=== PATIENT | female | born 1990 | race Caucasian/White ===

== ENCOUNTER 2021-10-29 16:29 | Emergency (ER) | payer SELFPAY ==
[2021-10-29] MEDS ORDERED: DIAZEPAM 5 MG TABLET ONE ×2 (17:41→17:46)
[2021-10-29] MEDS ORDERED: HYDROCODONE/APAP 10/325 TAB ONE (17:41)
[2021-10-29] MEDS ORDERED: KETOROLAC 30 MG/ML INJ ONE (17:41)
--- NOTE | 2021-10-29 19:22 | RAD REPORT ---
EXAM DESCRIPTION: RAD - Ribs Left - 10/29/2021 7:12 pm COMPARISON: None. FINDINGS: No displaced rib fracture is seen and no non-displaced rib fractures suspected. No aggress colton rib lesion. No underlying pneumothorax, effusion, infiltrate or pulmonary contusion. IMPRESSION: Negative left rib series.
--- NOTE | 2021-10-29 19:23 | RAD REPORT ---
EXAM DESCRIPTION: RAD - Shoulder Left 2 View - 10/29/2021 7:12 pm CLINICAL HISTORY: fall COMPARISON: No comparisonsNo comparisons TECHNIQUE: Internal and external rotation views of the left shoulder were obtained. FINDINGS: There is no fracture or dislocation. AC joint is normal in appearance. No acute or suspici ous findings. IMPRESSION: Negative two-view left shoulder examination for acute findings.
--- NOTE | 2021-10-29 19:37 | EDPHYS ---
Physician Documentation [facility] Name: Cecy King Age: 31 yrs Sex: Female : 1990 Arrival Date: 10/29/2021 Time: 16:33 Bed 9 Private MD: ED Physician Tk Rush HPI: 10/29 18:59 This 31 yrs old Female presents to ER via Ambulatory with complaints of Fall Injury, jmm Shoulder Pain. 18:59 Details of fall: The patient fell from an upright position, skate boarding. Onset: The jmm symptoms/episode began/occurred acutely, 3 day(s) ago. Associated injuries: The patient sustained left shoulder, chest pain. The patient has not experienced similar symptoms in the past. Denies hitting her head. 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 - Social history:: Smoking status: Patient denies any tobacco usage or history of. ROS: 18:59 Constitutional: Negative for fever, chills, and weight loss, Cardiovascular: Negative jmm for chest pain, palpitations, and edema, Respiratory: Negative for shortness of breath, cough, wheezing, and pleuritic chest pain. 18:59 MS/extremity: Positive for pain. 18:59 All other systems are negative. Exam: 18:59 Constitutional: This is a well developed, well nourished patient who is awake, alert, jmm and in no acute distress. Head/Face: atraumatic. Eyes: EOMI, no conjunctival erythema appreciated ENT: Moist Mucus Membranes Neck: Trachea midline, Supple 18:59 Respiratory: Normal respirations, no respiratory distress appreciated Abdomen/GI: Non distended Back: Normal ROM Skin: General appearance color normal 18:59 Chest/axilla: Inspection: normal, Palpation: tenderness, that is moderate, of the anterior aspect of left upper chest and left breast. 18:59 Cardiovascular: Rate: normal, Rhythm: regular. 18:59 Respiratory: the patient does not display signs of respiratory distress, Respirations: normal, Breath sounds: are clear throughout. 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 18:59 Skin: Appearance: Color: normal in color. 18:59 Neuro: Orientation: is normal, Mentation: is normal, Memory: is normal. 18:59 Psych: Behavior/mood is pleasant, cooperative. Vital Signs: 16:45 BP 132 / 85; Pulse 83; Resp 19; Temp 98.3(O); Pulse Ox 99% ; Weight 71.67 kg; Height 5 haro ft. 5 in. (165.10 cm); 18:52 BP 123 / 91; Pulse 66; Resp 18; Pulse Ox 100% on R/A; jb4 20:17 Pulse 57; Resp 16; Pulse Ox 100% on R/A; jb4 16:45 Body Mass Index 26.29 (71.67 kg, 165.10 cm) haro MDM: 17:24 Patient medically screened. [facility] 19:34 Data reviewed: vital signs, nurses notes. Counseling: I had a detailed discussion with jarrett the patient and/or guardian regarding: the historical points, exam findings, and any diagnostic results supporting the discharge/admit diagnosis, radiology results, the need for outpatient follow up, to return to the emergency department if symptoms worsen or persist or if there are any questions or concerns that arise at home. ED course: Patient states feeling much better. Patient advised to follow up with pcp and otherwise given strict return precautions. Patient understood and agrees with the plan of care. . 10/29 18:22 Order name: Ribs Left; Complete Time: 19:29 EDMS 10/29 18:22 Order name: Shoulder Left 2 View; Complete Time: 19:29 EDMS Administered Medications: 17:45 Drug: Ketorolac 30 mg Route: IM; Site: right deltoid; jb4 18:15 Follow up: Response: No adverse reaction; Marked relief of symptoms jb4 17:45 Drug: [place] (HYDROcodone-acetaminophen) 10 mg-325 mg 1 tabs Route: PO; jb4 18:15 Follow up: Response: No adverse reaction; Marked relief of symptoms jb4 17:45 Drug: Valium (diazepam) 5 mg Route: PO; jb4 20:15 Follow up: Response: No adverse reaction; Marked relief of symptoms jb4 Disposition Summary: 10/29/21 19:36 Discharge Ordered Location: Home jmm Condition: Stable jmm Diagnosis - Strain of other muscles, fascia and tendons at shoulder and upper arm level, left jm arm - Chest Wall Contusion jm Followup: jmm - With: Private Physician - When: 2 - 3 days - Reason: Recheck today's complaints, Continuance of care, Re-evaluation by your physician Discharge Instructions: - Discharge Summary Sheet jmm - Chest Wall Pain jmm - Shoulder Sprain jmm Forms: - Medication Reconciliation Form jm - Thank You Letter jm - Antibiotic Education jmm - Prescription Opioid Use jm Prescriptions: - Diclofenac Sodium 75 mg Oral Tablet Sustained Release - take 1 tablet by ORAL route 2 times per day; 30 tablet; Refills: 0, Product jmm Selection Permitted - orphenadrine citrate 100 mg Oral Tablet Sustained Release - take 1 tablet by ORAL route 2 times per day As needed; 20 tablet; Refills: 0, jmm Product Selection Permitted Signatures: Dispatcher [employer] EDMS Aashish Laughlin PA PA jmm Bryson, James, RN RN jb4 Janelle Jeffers RN RN haro Corrections: (The following items were deleted from the chart) 18:45 18:34 Shoulder Left 2 View+RAD.RAD.BRZ ordered. EDMS EDMS 18:46 18:34 Ribs Left+RAD.RAD.BRZ ordered. EDMS EDMS 18:46 18:35 Ribs Left+RAD.RAD.BRZ ordered. EDMS EDMS 18:48 18:35 Shoulder Left 2 View+RAD.RAD.BRZ ordered. EDMS EDMS
--- NOTE | 2021-10-29 19:37 | ER ---
Nurse's Notes [facility] Name: Cecy King Age: 31 yrs Sex: Female : 1990 Arrival Date: 10/29/2021 Time: 16:33 Bed 9 Private MD: Diagnosis: Strain of other muscles, fascia and tendons at shoulder and upper arm level, left arm;Chest Wall Contusion Presentation: 10/29 16:42 Chief complaint: Patient states: pt reports skate boarding with her kid, hit a rock, pt haro flew off skate board and injured left chest wall. pt denies head injuries and loc. Care prior to arrival: Assisted ventilation. Mechanism of Injury: Fall. Trauma event details: Injury occurred: October 26, 2021. 16:42 Acuity: IFRAH 4 haro 16:42 Method Of Arrival: Ambulatory 16:45 Coronavirus screen: Vaccine status: Patient reports being unvaccinated. Ebola Screen: haro Patient denies travel to an Ebola-affected area in the 21 days before illness onset. Initial Sepsis Screen: Does the patient meet any 2 criteria? No. Patient's initial sepsis screen is negative. Does the patient have a suspected source of infection? No. Patient's initial sepsis screen is negative. Risk Assessment: Do you want to hurt yourself or someone else? Patient reports no desire to harm self or others. Onset of symptoms was October 26, 2021. 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 - Social history:: Smoking status: Patient denies any tobacco usage or history of. Screenin:50 Abuse screen: Denies threats or abuse. Nutritional screening: No deficits noted. jb4 Tuberculosis screening: No symptoms or risk factors identified. Fall Risk None identified. Assessment: 16:42 General: Appears in no apparent distress. Behavior is cooperative, anxious. Pain: haro Complains of pain in anterior aspect of left upper chest and left breast. 17:00 General: Appears in no apparent distress. uncomfortable, Behavior is calm, cooperative, jb4 appropriate for age. Pain: Complains of pain in left trapezius, left scapular area, left clavicle, anterior aspect of left upper chest and left arm Pain does not radiate. Pain currently is 8 out of 10 on a pain scale. Neuro: Level of Consciousness is awake, alert, obeys commands, Oriented to person, place, time, situation. Cardiovascular: Patient's skin is warm and dry. Respiratory: Airway is patent Respiratory effort is even, unlabored, Respiratory pattern is regular, symmetrical. Derm: Skin is intact, Skin is pink, warm \T\ dry. Musculoskeletal: Circulation, motion, and sensation intact. Range of motion: intact in all extremities. 18:00 Reassessment: Patient appears in no apparent distress at this time. Patient and/or jb4 family updated on plan of care and expected duration. Pain level reassessed. Patient is alert, oriented x 3, equal unlabored respirations, skin warm/dry/pink. 18:52 Reassessment: Patient appears in no apparent distress at this time. Patient and/or jb4 family updated on plan of care and expected duration. Pain level reassessed. Patient is alert, oriented x 3, equal unlabored respirations, skin warm/dry/pink. 20:17 Reassessment: Patient appears in no apparent distress at this time. Patient and/or jb4 family updated on plan of care and expected duration. Pain level reassessed. Patient is alert, oriented x 3, equal unlabored respirations, skin warm/dry/pink. Vital Signs: 16:45 BP 132 / 85; Pulse 83; Resp 19; Temp 98.3(O); Pulse Ox 99% ; Weight 71.67 kg; Height 5 haro ft. 5 in. (165.10 cm); 18:52 BP 123 / 91; Pulse 66; Resp 18; Pulse Ox 100% on R/A; jb4 20:17 Pulse 57; Resp 16; Pulse Ox 100% on R/A; jb4 16:45 Body Mass Index 26.29 (71.67 kg, 165.10 cm) ED Course: 16:33 Patient arrived in ED. as 16:44 Triage completed. haro 16:47 Arm band placed on. haro 16:50 Patient has correct armband on for positive identification. Bed in low position. Call jb4 light in reach. Side rails up X 1. Client placed on continuous cardiac and pulse oximetry monitoring. NIBP monitoring applied. 16:56 Aashish Laughlin PA is PHCP. [facility] 16:56 Tk Rush MD is Attending Physician. [facility] 17:46 Theron Hadley, RN is Primary Nurse. jb4 19:14 Ribs Left In Process Unspecified. EDMS 19:14 Shoulder Left 2 View In Process Unspecified. EDMS 20:18 No provider procedures requiring assistance completed. Patient did not have IV access jb4 during this emergency room visit. Administered Medications: 17:45 Drug: Ketorolac 30 mg Route: IM; Site: right deltoid; jb4 18:15 Follow up: Response: No adverse reaction; Marked relief of symptoms jb4 17:45 Drug: [place] (HYDROcodone-acetaminophen) 10 mg-325 mg 1 tabs Route: PO; jb4 18:15 Follow up: Response: No adverse reaction; Marked relief of symptoms jb4 17:45 Drug: Valium (diazepam) 5 mg Route: PO; jb4 20:15 Follow up: Response: No adverse reaction; Marked relief of symptoms jb4 Outcome: 19:36 Discharge ordered by MD. [facility] 20:18 Discharged to home ambulatory. jb4 20:18 Condition: stable 20:18 Discharge instructions given to patient, Instructed on discharge instructions, follow up and referral plans. no drinking with medication, no driving heavy equipment, medication usage, Demonstrated understanding of instructions, follow-up care, medications, Prescriptions given X 2. 20:19 Patient left the ED. jb4 Signatures: Dispatcher [employer] EDMS Aashish Laughlin PA PA jmm Martinez, Amelia as Bryson, James, RN RN [facility] Vania-StagerJanelle RN RN haro Corrections: (The following items were deleted from the chart) 16:47 16:42 Chief complaint: Patient states: pt reports skate boarding with her kid, hit a haro rock, pt flew off skate board and injured left chest wall haro
[2021-10-29 20:33] VITALS: TEMP 98.3
[2021-10-29 20:35] VITALS: BP 123/91; O2SAT 100
== END 2021-10-29 20:19 | disposition home or self-care (01) ==
LOC: ER 16:29
DX: S46.812A Strain of other muscles, fascia and tendons at shoulder and upper arm level, left arm, initial encounter (principal); S20.219A Contusion of unspecified front wall of thorax, initial encounter; M25.512 Pain in left shoulder; V00.138A Other skateboard accident, initial encounter
CPT/HCPCS: 96372; 99283

== ENCOUNTER 2021-10-30 20:35 | Emergency (ER) | payer SELFPAY ==
--- NOTE | 2021-10-30 21:29 | RAD REPORT ---
EXAM DESCRIPTION: RAD - Chest Single View - 10/30/2021 9:24 pm CLINICAL HISTORY: shaky Chest pain. COMPARISON: No comparisons FINDINGS: Portable technique limits examination quality. The lungs are grossly clear. The heart is normal in size. No displaced fractures. IMPRESSION: No acute intrathoracic process suspected.
[2021-10-30] MEDS ORDERED: DIPHENHYDRAMINE 50 MG/ML VIAL ONE (21:48)
[2021-10-30 22:07] LABS: Absolute Lymphocytes (CBC) 1.7 K/uL (0.7-4.9); Hematocrit 39.3 % (36.0-45.0); Lymphocytes % 22.5 % (15.3-44.8); MPV 8.4 fL (7.6-11.3); RBC Red Blood Cell Count 4.46 M/uL (3.86-4.86)
[2021-10-30 22:27] LABS: Magnesium 2.3 mg/dL (1.8-2.4); Potassium 3.8 mmol/L (3.5-5.1); Troponin High Sensitivity 3.4 pg/mL (<58.9)
[2021-10-30 23:32] LABS: Urine Blood Negative (Negative); Urine Glucose Negative (Negative); Urine Protein Negative (Negative)
[2021-10-31 00:19] LABS: Barbiturates NEGATIVE (NEGATIVE); Benzodiazepines NEGATIVE (NEGATIVE); Cocaine NEGATIVE (NEGATIVE); METHAMPHETAM NEGATIVE (NEGATIVE); Methadone NEGATIVE (NEGATIVE); Opiates NEGATIVE (NEGATIVE); Phencyclidine NEGATIVE (NEGATIVE); THC Cannibis POSITIVE (NEGATIVE)
--- NOTE | 2021-10-31 00:26 | ER ---
Nurse's Notes [facility] Name: Cecy King Age: 31 yrs Sex: Female : 1990 Arrival Date: 10/30/2021 Time: 20:39 Bed 24 Private MD: Diagnosis: Adverse effect of unspecified drugs, medicaments and biological substances, initial encounter Presentation: 10/30 21:00 Chief complaint: Patient states: My mom gave me a dose of her Gabapentin this morning jb4 to help with the pain before I could get my scripts filled from when I was last here. I took my prescribed medication after wards and now I am feeling shaky, nauseous, having chills and axious. Coronavirus screen: At this time, the client does not indicate any symptoms associated with coronavirus-19. Ebola Screen: No symptoms or risks identified at this time. Initial Sepsis Screen: Does the patient meet any 2 criteria? No. Patient's initial sepsis screen is negative. Does the patient have a suspected source of infection? No. Patient's initial sepsis screen is negative. Risk Assessment: Do you want to hurt yourself or someone else? Patient reports no desire to harm self or others. Onset of symptoms was October 30, 2021. Transition of care: patient was not received from another setting of care. 21:00 Method Of Arrival: Ambulatory jb4 21:00 Acuity: IFRAH 3 jb4 Historical: - Allergies: 21:03 PENICILLINS; jb4 - Home Meds: 21:03 diclofenac oral [Active]; orphenadrine citrate oral [Active]; jb4 - PMHx: 21:03 None; jb4 - PSHx: 21:03 Tubal Ligation; Hernia repair; jb4 - Immunization history:: Adult Immunizations up to date. - Social history:: Smoking status: Patient denies any tobacco usage or history of. Screenin:04 Abuse screen: Denies threats or abuse. Nutritional screening: No deficits noted. jb4 Tuberculosis screening: No symptoms or risk factors identified. Fall Risk None identified. Assessment: 21:04 General: Appears in no apparent distress. uncomfortable, Behavior is cooperative, jb4 anxious. Pain: Denies pain. Neuro: Level of Consciousness is awake, alert, obeys commands, Oriented to person, place, time, situation. Cardiovascular: Patient's skin is warm and dry. Respiratory: Airway is patent Respiratory effort is even, unlabored, Respiratory pattern is regular, symmetrical. GI: Abdomen is flat, non-distended, Reports nausea. Derm: Skin is intact, Skin is pink, warm \T\ dry. Musculoskeletal: Circulation, motion, and sensation intact. Range of motion: intact in all extremities. 22:00 Reassessment: Patient appears in no apparent distress at this time. Patient and/or jb4 family updated on plan of care and expected duration. Pain level reassessed. Patient is alert, oriented x 3, equal unlabored respirations, skin warm/dry/pink. 23:39 Reassessment: Patient appears in no apparent distress at this time. Patient and/or jb4 family updated on plan of care and expected duration. Pain level reassessed. Patient is alert, oriented x 3, equal unlabored respirations, skin warm/dry/pink. 10/31 00:42 Reassessment: Patient appears in no apparent distress at this time. Patient and/or jb4 family updated on plan of care and expected duration. Pain level reassessed. Patient is alert, oriented x 3, equal unlabored respirations, skin warm/dry/pink. Vital Signs: 10/30 21:00 BP 122 / 83; Pulse 67; Resp 16; Temp 98.3(O); Pulse Ox 100% on R/A; Weight 71.67 kg jb4 (R); Height 5 ft. 5 in. (165.10 cm) (R); Pain 0/10; 22:00 BP 105 / 85; Pulse 60; Resp 16; Pulse Ox 100% on R/A; jb4 23:15 BP 113 / 79; Pulse 55; Resp 16; Pulse Ox 100% on R/A; jb4 10/31 00:42 BP 105 / 65; Pulse 58; Resp 16; Pulse Ox 99% on R/A; jb4 10/30 21:00 Body Mass Index 26.29 (71.67 kg, 165.10 cm) 4 ED Course: 10/30 20:39 Patient arrived in ED. ag3 20:51 Vince Alfaro PA is PHCP. cp 20:51 Gerson Galvez MD is Attending Physician. cp 21:00 Theron Hadley RN is Primary Nurse. jb4 21:03 Triage completed. jb4 21:03 Arm band placed on right wrist. jb4 21:04 Patient has correct armband on for positive identification. Bed in low position. Call jb4 light in reach. Side rails up X 1. 21:25 XRAY Chest (1 view) In Process Unspecified. EDMS 21:30 Initial lab(s) drawn, by me, sent to lab. Inserted saline lock: 20 gauge in right jb4 antecubital area, using aseptic technique. Blood collected. 21:38 Basic Metabolic Panel Sent. jb4 21:38 CBC with Diff Sent. jb4 21:38 Magnesium Sent. jb4 21:38 Troponin HS Sent. jb4 10/31 00:42 No provider procedures requiring assistance completed. IV discontinued, intact, jb4 bleeding controlled, No redness/swelling at site. Pressure dressing applied. Administered Medications: 10/30 21:45 Drug: Benadryl (diphenhydrAMINE) 25 mg Route: IVP; Site: right antecubital; jb4 22:15 Follow up: Response: No adverse reaction; Marked relief of symptoms jb4 Medication: 21:04 VIS not applicable for this client. jb4 Outcome: 10/31 00:25 Discharge ordered by . tirso 00:42 Discharged to home ambulatory. jb4 00:42 Condition: stable 00:42 Discharge instructions given to patient, Instructed on discharge instructions, follow up and referral plans. medication usage, Demonstrated understanding of instructions, follow-up care, medications, Prescriptions given X 2. 00:43 Patient left the ED. jb4 Signatures: Dispatcher [employer] EDHI Vince Alafro PA PA cp Bryson, James, RN RN jb4 Latasha Garcia3
--- NOTE | 2021-10-31 00:26 | EDPHYS ---
Physician Documentation [facility] Name: Cecy King Age: 31 yrs Sex: Female : 1990 Arrival Date: 10/30/2021 Time: 20:39 Bed 24 Private MD: ED Physician Gerson Galvez Historical: - Allergies: 10/30 21:03 PENICILLINS; jb4 - Home Meds: 21:03 diclofenac oral [Active]; orphenadrine citrate oral [Active]; jb4 - PMHx: 21:03 None; jb4 - PSHx: 21:03 Tubal Ligation; Hernia repair; jb4 - Immunization history:: Adult Immunizations up to date. - Social history:: Smoking status: Patient denies any tobacco usage or history of. Vital Signs: 21:00 BP 122 / 83; Pulse 67; Resp 16; Temp 98.3(O); Pulse Ox 100% on R/A; Weight 71.67 kg jb4 (R); Height 5 ft. 5 in. (165.10 cm) (R); Pain 0/10; 22:00 BP 105 / 85; Pulse 60; Resp 16; Pulse Ox 100% on R/A; jb4 23:15 BP 113 / 79; Pulse 55; Resp 16; Pulse Ox 100% on R/A; jb4 10/31 00:42 BP 105 / 65; Pulse 58; Resp 16; Pulse Ox 99% on R/A; jb4 10/30 21:00 Body Mass Index 26.29 (71.67 kg, 165.10 cm) jb4 MDM: 10/30 20:54 Patient medically screened. cp 10/30 21:08 Order name: Basic Metabolic Panel; Complete Time: 22:51 cp 10/30 22:51 Interpretation: Normal except: GFR 70. cp 10/30 21:08 Order name: CBC with Diff; Complete Time: 22:51 cp 10/30 21:08 Order name: Magnesium; Complete Time: 22:51 cp 10/30 21:08 Order name: Troponin HS; Complete Time: 22:51 cp 10/30 23:28 Order name: UDS; Complete Time: 00:21 cp 10/30 23:29 Order name: Urine Microscopic Only; Complete Time: 00:35 cp 10/31 00:35 Interpretation: Normal except: SQEPI 5-10. cp 10/30 21:05 Order name: EKG; Complete Time: 21:05 cp 10/30 21:05 Order name: EKG - Nurse/Tech; Complete Time: 21:38 cp 10/30 21:08 Order name: XRAY Chest (1 view); Complete Time: 22:51 cp 10/30 22:52 Interpretation: Report review. 10/30 21:08 Order name: Cardiac monitoring; Complete Time: 21:38 cp 10/30 21:08 Order name: IV Saline Lock; Complete Time: 21:38 cp 10/30 21:08 Order name: Labs collected and sent; Complete Time: 21:38 cp 10/30 23:32 Order name: Urine Dipstick-Ancillary; Complete Time: 00:21 EDMS 10/30 21:08 Order name: O2 Per Protocol; Complete Time: 21:38 cp 10/30 21:08 Order name: O2 Sat Monitoring; Complete Time: 21:38 cp 10/30 21:08 Order name: Urine Dipstick-Ancillary (obtain specimen); Complete Time: 23:38 cp Administered Medications: 21:45 Drug: Benadryl (diphenhydrAMINE) 25 mg Route: IVP; Site: right antecubital; jb4 22:15 Follow up: Response: No adverse reaction; Marked relief of symptoms jb4 Disposition Summary: 10/31/21 00:25 Discharge Ordered Location: Home cp Problem: new cp Symptoms: have improved cp Condition: Stable cp Diagnosis - Adverse effect of unspecified drugs, medicaments and biological substances, initial cp encounter Followup: cp - With: Private Physician - When: 1 - 2 days - Reason: Recheck today's complaints Discharge Instructions: - Discharge Summary Sheet cp - Drug Allergy cp Forms: - Medication Reconciliation Form cp - Thank You Letter cp - Antibiotic Education cp - Prescription Opioid Use cp Prescriptions: - Vistaril 25 mg Oral capsule - take 1 capsule by ORAL route 4 times per day As needed; 20 capsule; Refills: 0, cp Product Selection Permitted - Zofran 4 mg Oral Tablet - take 1 tablet by ORAL route every 12 hours As needed; 20 tablet; Refills: 0, cp Product Selection Permitted Signatures: Dispatcher [facility] Vince Alfaro PA PA cp Bryson, James, RN RN jb4 Corrections: (The following items were deleted from the chart) 21:38 21:08 Urine Test ordered. cp jb4
[2021-10-31 00:33] LABS: Urine Bacteria <20 /HPF (<20); Urine RBC <5 /HPF (NONE SEEN)
[2021-10-31 00:48] VITALS: TEMP 98.3
[2021-10-31 00:54] VITALS: BP 105/65; O2SAT 99
--- NOTE | 2021-10-31 11:07 | EKG ---
Test Date: 2021-10-30 Test Time: 21:20:01 Datastage Consultant: JEREMIAH MEASUREMENT RESULTS: Intervals: Rate: 64 DE: 152 QRSD: 76 QT: 390 QTc: 402 [place]: P: 69 DE: 152 QRS: 68 T: 56 INTERPRETIVE STATEMENTS: Normal sinus rhythm Normal ECG No previous ECG available for comparison Electronically Signed On 10-31-21 11:06:12 CDT by Daryn Alberto
== END 2021-10-31 00:43 | disposition home or self-care (01) ==
LOC: ER 20:35
DX: R11.0 Nausea (principal); T42.6X5A Adverse effect of other antiepileptic and sedative-hypnotic drugs, initial encounter; Z88.0 Allergy status to penicillin
CPT/HCPCS: 36415; 71045; 80048; 80307; 81003; 81015; 83735; 84484; 85025; 93005; J1200

== ENCOUNTER 2022-03-03 17:33 | Emergency (ER) | payer SELFPAY ==
[2022-03-03 18:58] LABS: Urine Blood 3+ (Negative); Urine Glucose Negative (Negative); Urine Protein 3+ (Negative); Urine Specific Gravity 1.015 (1.005-1.030); Urine pH 8.5 (5.0-7.0)
[2022-03-03 19:08] LABS: Urine Specific Gravity/Preg 1.015 (1.005-1.030)
[2022-03-03] MEDS ORDERED: KETOROLAC 30 MG/ML INJ ONE (19:32)
[2022-03-03] MEDS ORDERED: DIAZEPAM 5 MG TABLET ONE (20:18)
--- NOTE | 2022-03-03 20:41 | ER ---
Nurse's Notes [facility] Name: Cecy King Age: 32 yrs Sex: Female : 1990 Arrival Date: 03/03/2022 Time: 17:37 Bed 19 Private MD: Diagnosis: Abnormal uterine and vaginal bleeding, unspecified;Other situational type phobia;Adjustment disorder with anxiety Presentation: 03/03 17:50 Chief complaint: Heavy menstrual bleeding x 2 days, nausea, malaise, dizziness today. hb Coronavirus screen: At this time, the client does not indicate any symptoms associated with coronavirus-19. Ebola Screen: No symptoms or risks identified at this time. Risk Assessment: Do you want to hurt yourself or someone else? Patient reports no desire to harm self or others. Onset of symptoms was March 02, 2022. 17:50 Method Of Arrival: Ambulatory hb 17:50 Acuity: IFRAH 3 hb 18:20 Initial Sepsis Screen: Does the patient meet any 2 criteria? No. Patient's initial em6 sepsis screen is negative. Does the patient have a suspected source of infection? No. Patient's initial sepsis screen is negative. 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 - Social history:: Smoking status: unknown. Screenin:06 Abuse screen: Denies threats or abuse. Nutritional screening: No deficits noted. em6 Tuberculosis screening: No symptoms or risk factors identified. 18:20 Fall Risk Total Meyer Fall Scale indicates No Risk (0-24 pts). em6 Assessment: 18:20 General: Appears comfortable, Behavior is cooperative. Pain: Denies pain. Neuro: Level em6 of Consciousness is awake, alert, obeys commands, Oriented to person, place, time, situation. Cardiovascular: Reports lightheadedness, nausea, Patient's skin is warm and dry. Respiratory: Airway is patent Respiratory effort is even, unlabored, Respiratory pattern is regular, symmetrical, Breath sounds are clear bilaterally. GI: Abdomen is non-distended, Abd is soft and non tender X 4 quads. : Reports a week before her period and during her period she starts having really bad cramps. EENT: No signs and/or symptoms were reported regarding the EENT system. Derm: No signs and/or symptoms reported regarding the dermatologic system. Musculoskeletal: Circulation, motion, and sensation intact. Range of motion: intact in all extremities. 19:21 Reassessment: No changes from previously documented assessment. Patient and/or family em6 updated on plan of care and expected duration. Pain level reassessed. Patient is alert, oriented x 3, equal unlabored respirations, skin warm/dry/pink. 20:20 Reassessment: Patient and/or family updated on plan of care and expected duration. Pain em6 level reassessed. Patient is alert, oriented x 3, equal unlabored respirations, skin warm/dry/pink. provider at bedside. patient is crying and states recent loss of loved one. new medication ordered. Vital Signs: 17:50 BP 131 / 106; Pulse 76; Resp 16; Temp 97.1; Pulse Ox 100% on R/A; Weight 68.04 kg; hb Height 5 ft. 5 in. (165.10 cm); Pain 0/10; 19:02 BP 105 / 84 Supine; Pulse 80; Resp 18; Pulse Ox 100% on R/A; em6 19:04 BP 109 / 87 Sitting; Pulse 85; Resp 18; Pulse Ox 100% ; em6 19:06 BP 114 / 87 Standing; Pulse 83; Resp 18; Pulse Ox 100% on R/A; em6 20:00 BP 99 / 65; Pulse 73; Resp 18; Pulse Ox 100% on R/A; em6 20:44 BP 97 / 74; Pulse 74; Resp 16; Pulse Ox 100% on R/A; em6 17:50 Body Mass Index 24.96 (68.04 kg, 165.10 cm) hb ED Course: 17:37 Patient arrived in ED. rg4 17:41 Radha Gibson FNP-C [facility]. snw 17:41 Onofre Green DO is Attending Physician. snw 17:51 Triage completed. hb 17:52 Arm band placed on. hb 18:06 Evy Sawyer, RN is Primary Nurse. em6 18:20 Bed in low position. Call light in reach. Side rails up X2. Pulse ox on. NIBP on. Warm em6 blanket given. 20:45 No provider procedures requiring assistance completed. Patient did not have IV access em6 during this emergency room visit. Administered Medications: 19:34 Drug: Ketorolac 30 mg Route: IM; Site: right deltoid; em6 20:13 Follow up: Response: No adverse reaction em6 20:19 Drug: Valium (diazepam) 5 mg Route: PO; em6 20:35 Follow up: Response: No adverse reaction em6 Medication: 20:45 VIS not applicable for this client. em6 Outcome: 20:40 Discharge ordered by . snw 20:52 Discharged to home ambulatory. em6 20:52 Condition: stable 20:52 Discharge instructions given to patient, Instructed on discharge instructions, follow up and referral plans. medication usage, Demonstrated understanding of instructions, follow-up care, medications, Prescriptions given X 1. 20:53 Patient left the ED. em6 Signatures: Radha Gibson, PASTEURIZER HELPER-C PASTEURIZER HELPER-Csnw Janelle Mccall RN RN Nola Reeder rg4 Evy Sawyer RN RN em6 Corrections: (The following items were deleted from the chart) 17:52 17:50 Chief complaint: Heavy menstrual bleeding x 2 days, severe dizziness today. hb hb 17:52 17:50 Chief complaint: Heavy menstrual bleeding x 2 days, malaise dizziness today. hb hb 20:35 19:21 Reassessment: Patient appears in no apparent distress at this time. No changes em6 from previously documented assessment. Patient and/or family updated on plan of care and expected duration. Pain level reassessed. Patient is alert, oriented x 3, equal unlabored respirations, skin warm/dry/pink. em6 20:47 20:20 Reassessment: No changes from previously documented assessment. Patient and/or em6 family updated on plan of care and expected duration. Pain level reassessed. Patient is alert, oriented x 3, equal unlabored respirations, skin warm/dry/pink. em6
--- NOTE | 2022-03-03 20:41 | EDPHYS ---
Physician Documentation [facility] Name: Cecy King Age: 32 yrs Sex: Female : 1990 Arrival Date: 03/03/2022 Time: 17:37 Bed 19 Private MD: ED Physician Onofre Green HPI: 03/03 20:19 This 32 yrs old Female presents to ER via Ambulatory with complaints of Vaginal snw Bleeding, Dizziness. 20:19 The patient presents with vaginal bleeding that is moderate, pt states monthly x 7 snw months her cycles have been heavier and she is more emotional. . Onset: The symptoms/episode began/occurred 7 month(s) ago, Pt's Spouse was recently killed in a trauma, she has 4 children. The family at this time is living with the pt's father. 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 - Social history:: Smoking status: unknown. ROS: 19:58 Eyes: Negative for injury, pain, redness, and discharge, ENT: Negative for injury, snw pain, and discharge, Neck: Negative for injury, pain, and swelling, Cardiovascular: Negative for chest pain, palpitations, and edema, Respiratory: Negative for shortness of breath, cough, wheezing, and pleuritic chest pain, Abdomen/GI: Negative for abdominal pain, nausea, vomiting, diarrhea, and constipation, Back: Negative for injury and pain. 19:58 MS/Extremity: Negative for injury and deformity, Skin: Negative for injury, rash, and discoloration, Neuro: Negative for headache, weakness, numbness, tingling, and seizure. 19:58 Constitutional: Positive for body aches, chills, malaise. 19:58 : Positive for vaginal bleeding. 19:58 Psych: Positive for anxiety. Exam: 19:52 Head/Face: Normocephalic, atraumatic. Eyes: Pupils equal round and reactive to light, snw extra-ocular motions intact. Lids and lashes normal. Conjunctiva and sclera are non-icteric and not injected. Cornea within normal limits. Periorbital areas with no swelling, redness, or edema. ENT: Nares patent. No nasal discharge, no septal abnormalities noted. Tympanic membranes are normal and external auditory canals are clear. Oropharynx with no redness, swelling, or masses, exudates, or evidence of obstruction, uvula midline. Mucous membranes moist. Neck: Trachea midline, no thyromegaly or masses palpated, and no cervical lymphadenopathy. Supple, full range of motion without nuchal rigidity, or vertebral point tenderness. No Meningismus. Chest/axilla: Normal chest wall appearance and motion. Nontender with no deformity. No lesions are appreciated. Cardiovascular: Regular rate and rhythm with a normal S1 and S2. No gallops, murmurs, or rubs. Normal PMI, no JVD. No pulse deficits. Respiratory: Lungs have equal breath sounds bilaterally, clear to auscultation and percussion. No rales, rhonchi or wheezes noted. No increased work of breathing, no retractions or nasal flaring. Back: No spinal tenderness. No costovertebral tenderness. Full range of motion. Skin: Warm, dry with normal turgor. Normal color with no rashes, no lesions, and no evidence of cellulitis. MS/ Extremity: Pulses equal, no cyanosis. Neurovascular intact. Full, normal range of motion. Neuro: Awake and alert, GCS 15, oriented to person, place, time, and situation. Cranial nerves II-XII grossly intact. Motor strength 5/5 in all extremities. Sensory grossly intact. Cerebellar exam normal. Normal gait. 19:52 Constitutional: The patient appears alert, awake, anxious. 19:52 Psych: Behavior/mood is anxious, Affect is animated. Vital Signs: 17:50 BP 131 / 106; Pulse 76; Resp 16; Temp 97.1; Pulse Ox 100% on R/A; Weight 68.04 kg; hb Height 5 ft. 5 in. (165.10 cm); Pain 0/10; 19:02 BP 105 / 84 Supine; Pulse 80; Resp 18; Pulse Ox 100% on R/A; em6 19:04 BP 109 / 87 Sitting; Pulse 85; Resp 18; Pulse Ox 100% ; em6 19:06 BP 114 / 87 Standing; Pulse 83; Resp 18; Pulse Ox 100% on R/A; em6 20:00 BP 99 / 65; Pulse 73; Resp 18; Pulse Ox 100% on R/A; em6 20:44 BP 97 / 74; Pulse 74; Resp 16; Pulse Ox 100% on R/A; em6 17:50 Body Mass Index 24.96 (68.04 kg, 165.10 cm) hb MDM: 18:04 Patient medically screened. snw 20:13 Data reviewed: vital signs, nurses notes. Data interpreted: Pulse oximetry: on room air snw is 100 %. Interpretation: normal. Counseling: I had a detailed discussion with the patient and/or guardian regarding: the historical points, exam findings, and any diagnostic results supporting the discharge/admit diagnosis, lab results, the need for outpatient follow up, for definitive care. Special discussion: Based on the history and exam findings, there is no indication for further emergent testing or inpatient evaluation. I discussed with the patient/guardian the need to see the primary care provider for further evaluation of the symptoms. I discussed with the patient/guardian the need to see the psychiatrist for further evaluation of the symptoms. 03/03 18:59 Order name: Urine Dipstick-Ancillary; Complete Time: 19:15 EDMS 03/03 18:01 Order name: Orthostatics; Complete Time: 19:10 snw 03/03 19:01 Order name: Urine --Ancillary (enter results); Complete Time: 19:15 lg3 03/03 18:01 Order name: Urine Dipstick-Ancillary (obtain specimen); Complete Time: 19:05 snw 03/03 18:01 Order name: Urine Test (obtain specimen); Complete Time: 19:05 snw Administered Medications: 19:34 Drug: Ketorolac 30 mg Route: IM; Site: right deltoid; em6 20:13 Follow up: Response: No adverse reaction em6 20:19 Drug: Valium (diazepam) 5 mg Route: PO; em6 20:35 Follow up: Response: No adverse reaction em6 Disposition: 03/04 06:21 Co-signature as Attending Physician, Onofre FLETCHER was immediately available on-site ms3 in the Emergency Department for consultation in the care of the patient. . Disposition Summary: 03/03/22 20:40 Discharge Ordered Location: Home snw Condition: Stable snw Diagnosis - Abnormal uterine and vaginal bleeding, unspecified snw - Other situational type phobia snw - Adjustment disorder with anxiety snw Followup: snw - With: Emergency Department - When: As needed - Reason: Worsening of condition Followup: snw - With: Private Physician - When: 2 - 3 days - Reason: Recheck today's complaints, Continuance of care, Re-evaluation by your physician Discharge Instructions: - Discharge Summary Sheet snw - Abnormal Uterine Bleeding snw - Adjustment Disorder, Adult snw Forms: - Medication Reconciliation Form snw - Thank You Letter snw - Antibiotic Education snw - Prescription Opioid Use snw Prescriptions: - Diclofenac Sodium 75 mg Oral Tablet Sustained Release - take 1 tablet by ORAL route 2 times per day; 30 tablet; Refills: 0, Product snw Selection Permitted Signatures: Dispatcher [employer] EDMS Radha Gibson FNP-C REPAIRER VENEER SHEET-Csnw Janelle Mccall, RN RN Onofre Green DO DO ms3 Evy Sawyer RN RN em6
[2022-03-03 21:47] VITALS: TEMP 97.1; O2SAT 100
[2022-03-03 21:52] VITALS: BP 97/74
== END 2022-03-03 20:53 | disposition home or self-care (01) ==
LOC: ER 17:33
DX: N93.9 Abnormal uterine and vaginal bleeding, unspecified (principal); F43.22 Adjustment disorder with anxiety; F40.248 Other situational type phobia
CPT/HCPCS: 81003; 81025; 96372; 99283

== ENCOUNTER 2022-03-08 00:37 | Emergency (ER) | payer SELFPAY ==
[2022-03-08] MEDS ORDERED: MORPHINE 4 MG/ML SYR ONE (01:16)
[2022-03-08] MEDS ORDERED: FAMOTIDINE 20 MG/2 ML VIAL IV ONE (01:16)
[2022-03-08] MEDS ORDERED: ONDANSETRON 4 MG/2 ML VIAL ONE (01:16)
[2022-03-08] MEDS ORDERED: NA CHLORIDE 0.9% 1,000 ML ONE (01:16)
[2022-03-08 01:49] LABS: Absolute Lymphocytes (CBC) 1.2 K/uL (0.7-4.9); Hematocrit 36.3 % (36.0-45.0); MCV 88.4 fL (80-100); MPV 8.4 fL (7.6-11.3); RBC Red Blood Cell Count 4.11 M/uL (3.86-4.86)
[2022-03-08 02:17] LABS: Albumin 3.7 g/dL (3.4-5.0); Potassium 3.4 mmol/L (3.5-5.1)
[2022-03-08 02:28] LABS: Urine Blood Trace-intact (Negative); Urine Glucose Negative (Negative); Urine Protein Trace (Negative)
[2022-03-08 02:29] LABS: Bilirubin Total 0.2 mg/dL (0.2-1.0); Protein, Total 6.7 g/dL (6.4-8.2)
[2022-03-08] MEDS ORDERED: POTASSIUM 25 MEQ EFFERV TAB ONE (02:49)
[2022-03-08 02:57] LABS: Urine Bacteria <20 /HPF (<20); Urine Mucus Slight /HPF (None Seen); Urine RBC <5 /HPF (None Seen)
--- NOTE | 2022-03-08 03:35 | ER ---
Nurse's Notes [facility] Name: Cecy King Age: 32 yrs Sex: Female : 1990 Arrival Date: 03/08/2022 Time: 00:40 Bed 16 Private MD: Diagnosis: Vomiting;Abdominal pain, Generalized;Hypokalemia Presentation: 03/08 01:02 Chief complaint: Patient states: "This has been going on for weeks. I have been told it tw5 was anxiety. But my stomach hurts.". Coronavirus screen: Vaccine status: Patient reports being unvaccinated. Ebola Screen: Patient negative for fever greater than or equal to 101.5 degrees Fahrenheit, and additional compatible Ebola Virus Disease symptoms Patient denies exposure to infectious person. Patient denies travel to an Ebola-affected area in the 21 days before illness onset. Initial Sepsis Screen: Does the patient meet any 2 criteria? No. Patient's initial sepsis screen is negative. Does the patient have a suspected source of infection? No. Patient's initial sepsis screen is negative. Risk Assessment: Do you want to hurt yourself or someone else? Patient reports no desire to harm self or others. Onset of symptoms is unknown. 01:02 Method Of Arrival: Ambulatory tw5 01:02 Acuity: IFRAH 3 tw5 Triage Assessment: 01:04 General: Appears in no apparent distress. Behavior is appropriate for age. Pain: Pain tw5 currently is 8 out of 10 on a pain scale. GI: Reports normal bowel habits, vomiting. 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 - Social history:: Smoking status: Reported history of juuling and/or vaping. Screenin:31 Abuse screen: Denies threats or abuse. Denies injuries from another. Nutritional aa9 screening: No deficits noted. Tuberculosis screening: No symptoms or risk factors identified. Fall Risk None identified. Assessment: 02:00 General: Appears uncomfortable, slender, Behavior is cooperative, appropriate for age, aa9 anxious, crying. Pain: Complains of pain in abdomen. Neuro: Level of Consciousness is awake, alert, obeys commands, Oriented to person, place, time, situation. Cardiovascular: Patient's skin is warm and dry. Respiratory: Airway is patent Respiratory effort is even, unlabored. GI: Abdomen is flat, Parent/caregiver reports the patient having nausea, vomiting. : No signs and/or symptoms were reported regarding the genitourinary system. EENT: No signs and/or symptoms were reported regarding the EENT system. Derm: Skin is intact, is healthy with good turgor. Vital Signs: 01:02 BP 119 / 89; Pulse 100; Resp 18; Temp 99.2; Pulse Ox 100% ; Weight 68.04 kg; Height 5 tw5 ft. 5 in. (165.10 cm); Pain 8/10; 01:15 BP 100 / 89; Pulse 54; Resp 16 S; Pulse Ox 98% on R/A; aa9 02:31 BP 101 / 62; Pulse 58; Resp 16 S; Pulse Ox 99% on R/A; aa9 03:48 BP 103 / 72; Pulse 53; Resp 16 S; Pulse Ox 100% on R/A; aa9 01:02 Body Mass Index 24.96 (68.04 kg, 165.10 cm) tw5 ED Course: 00:40 Patient arrived in ED. ja2 01:04 Triage completed. tw5 01:04 Arm band placed on. tw5 01:08 Vince Brooks MD is Attending Physician. [facility] 01:10 Dianna Love, RN is Primary Nurse. aa9 01:30 Chest Single View XRAY In Process Unspecified. EDMS 01:40 Inserted saline lock: 20 gauge in right antecubital area, using aseptic technique. aa9 Blood collected. 01:43 Flu Sent. aa9 01:43 SARS-COV-2 RT PCR (Document "Date of Onset" if Symptomatic) Sent. aa9 01:43 CBC with Diff Sent. aa9 01:43 CMP Sent. aa9 01:43 Lipase Sent. aa9 01:54 SARS-COV-2 RT PCR (Document "Date of Onset" if Symptomatic) Sent. aa9 01:54 Flu Sent. aa9 01:54 CMP Sent. aa9 01:54 Lipase Sent. aa9 03:07 CT Abd/Pelvis - IV Contrast Only In Process Unspecified. EDMS 03:38 Bed in low position. Call light in reach. Side rails up X2. aa9 03:38 No provider procedures requiring assistance completed. IV discontinued, intact, aa9 bleeding controlled, No redness/swelling at site. Pressure dressing applied. Administered Medications: 01:54 Drug: NS 0.9% 1000 ml Route: IV; Rate: 1 bolus; Site: right antecubital; aa9 03:38 Follow up: Response: No adverse reaction; IV Status: Completed infusion; IV Intake: aa9 1000ml 01:54 Drug: Pepcid (famotidine) 20 mg Route: IVP; Site: right antecubital; aa9 03:38 Follow up: Response: No adverse reaction aa9 01:54 Drug: Zofran (Ondansetron) 4 mg Route: IVP; Site: right antecubital; aa9 03:38 Follow up: Response: No adverse reaction aa9 01:54 Drug: morphine 4 mg Route: IVP; Infused Over: 4 mins; Site: right antecubital; aa9 03:37 Follow up: Response: No adverse reaction aa9 03:04 Drug: Potassium Effervescent Tablet 25 mEq Route: PO; aa9 03:37 Follow up: Response: No adverse reaction aa9 Medication: 03:38 VIS not applicable for this client. aa9 Intake: 03:38 IV: 1000ml; Total: 1000ml. aa9 Outcome: 03:35 Discharge ordered by . mitra 03:47 Discharged to home ambulatory. aa9 03:47 Condition: stable 03:47 Discharge instructions given to patient, Instructed on discharge instructions, follow up and referral plans. medication usage, Demonstrated understanding of instructions, follow-up care, medications, Prescriptions given X 3. 03:48 Patient left the ED. aa9 Signatures: Dispatcher [employer] EDVince Warner MD MD cha Alexander, Rhiannon Schmitz 5 Dianna Love, RN RN aa9
--- NOTE | 2022-03-08 03:36 | EDPHYS ---
Physician Documentation [facility] Name: Cecy King Age: 32 yrs Sex: Female : 1990 Arrival Date: 03/08/2022 Time: 00:40 Bed 16 Private MD: ED Physician Vince Brooks HPI: 03/08 02:34 This 32 yrs old Female presents to ER via Ambulatory with complaints of mitra Fever, Vomiting. 02:34 The patient reports fever, not measured (subjective). Onset: The symptoms/episode mitra began/occurred 2 month(s) ago. Modifying factors: there are no obvious modifying factors. Associated signs and symptoms: Pertinent positives: abdominal pain, nausea, vomiting. Severity of symptoms: At their worst the symptoms were mild in the emergency department the symptoms are unchanged. The patient has experienced similar episodes in the past, multiple times. 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 - Social history:: Smoking status: Reported history of juuling and/or vaping. ROS: 02:35 Constitutional: Negative for fever, chills, and weight loss, Eyes: Negative for injury, mitra pain, redness, and discharge, ENT: Negative for injury, pain, and discharge, Neck: Negative for injury, pain, and swelling, Cardiovascular: Negative for chest pain, palpitations, and edema, Back: Negative for injury and pain, : Negative for injury, bleeding, discharge, and swelling, MS/Extremity: Negative for injury and deformity, Skin: Negative for injury, rash, and discoloration, Neuro: Negative for headache, weakness, numbness, tingling, and seizure, Psych: Negative for depression, anxiety, suicide ideation, homicidal ideation, and hallucinations, Allergy/Immunology: Negative for hives, rash, and allergies, Endocrine: Negative for neck swelling, polydipsia, polyuria, polyphagia, and marked weight changes, Hematologic/Lymphatic: Negative for swollen nodes, abnormal bleeding, and unusual bruising. 02:35 Respiratory: Positive for cough, with no reported sputum. 02:35 Abdomen/GI: Positive for abdominal pain, nausea and vomiting, of the left upper quadrant. Exam: 02:35 Constitutional: This is a well developed, well nourished patient who is awake, alert, mitra and in no acute distress. Head/Face: Normocephalic, atraumatic. Eyes: Pupils equal round and reactive to light, extra-ocular motions intact. Lids and lashes normal. Conjunctiva and sclera are non-icteric and not injected. Cornea within normal limits. Periorbital areas with no swelling, redness, or edema. ENT: Nares patent. No nasal discharge, no septal abnormalities noted. Tympanic membranes are normal and external auditory canals are clear. Oropharynx with no redness, swelling, or masses, exudates, or evidence of obstruction, uvula midline. Mucous membranes moist. Neck: Trachea midline, no thyromegaly or masses palpated, and no cervical lymphadenopathy. Supple, full range of motion without nuchal rigidity, or vertebral point tenderness. No Meningismus. Chest/axilla: Normal chest wall appearance and motion. Nontender with no deformity. No lesions are appreciated. Cardiovascular: Regular rate and rhythm with a normal S1 and S2. No gallops, murmurs, or rubs. Normal PMI, no JVD. No pulse deficits. Respiratory: Lungs have equal breath sounds bilaterally, clear to auscultation and percussion. No rales, rhonchi or wheezes noted. No increased work of breathing, no retractions or nasal flaring. Abdomen/GI: Soft, non-tender, with normal bowel sounds. No distension or tympany. No guarding or rebound. No evidence of tenderness throughout. Back: No spinal tenderness. No costovertebral tenderness. Full range of motion. Skin: Warm, dry with normal turgor. Normal color with no rashes, no lesions, and no evidence of cellulitis. MS/ Extremity: Pulses equal, no cyanosis. Neurovascular intact. Full, normal range of motion. Neuro: Awake and alert, GCS 15, oriented to person, place, time, and situation. Cranial nerves II-XII grossly intact. Motor strength 5/5 in all extremities. Sensory grossly intact. Cerebellar exam normal. Normal gait. Psych: Awake, alert, with orientation to person, place and time. Behavior, mood, and affect are within normal limits. 02:35 Musculoskeletal/extremity: DVT Exam: No signs of deep vein thrombosis. no pain, no swelling, no tenderness, negative Homans' sign noted on exam, no appreciated bluish discoloration, no erythema, no increased warmth. Vital Signs: 01:02 BP 119 / 89; Pulse 100; Resp 18; Temp 99.2; Pulse Ox 100% ; Weight 68.04 kg; Height 5 tw5 ft. 5 in. (165.10 cm); Pain 8/10; 01:15 BP 100 / 89; Pulse 54; Resp 16 S; Pulse Ox 98% on R/A; aa9 02:31 BP 101 / 62; Pulse 58; Resp 16 S; Pulse Ox 99% on R/A; aa9 03:48 BP 103 / 72; Pulse 53; Resp 16 S; Pulse Ox 100% on R/A; aa9 01:02 Body Mass Index 24.96 (68.04 kg, 165.10 cm) tw5 MDM: 01:08 Patient medically screened. [facility] 02:35 Differential diagnosis: Nonspecific abd pain, gastritis, cholecystitis, pancreatitis, mitra diverticulitis, viral gastroenteritis, gastroenteritis, viral Infection, bacterial infection, URI, pneumonia gastroenteritis. Data reviewed: vital signs, nurses notes, lab test result(s), radiologic studies, CT scan. Data interpreted: Pulse oximetry: on room air is 98 %. Test interpretation: by ED physician or midlevel provider:. Counseling: I had a detailed discussion with the patient and/or guardian regarding: the historical points, exam findings, and any diagnostic results supporting the discharge/admit diagnosis, lab results, radiology results, the need for outpatient follow up, for definitive care, a family practitioner. 03/08 01:11 Order name: CBC with Diff; Complete Time: 01:59 [facility] 03/08 01:11 Order name: CMP; Complete Time: 02:33 [facility] 03/08 01:11 Order name: Lipase; Complete Time: 02:33 [facility] 03/08 01:11 Order name: Urine Microscopic Only; Complete Time: 03:35 [facility] 03/08 01:11 Order name: Flu; Complete Time: 02:33 [facility] 03/08 01:11 Order name: SARS-COV-2 RT PCR (Document "Date of Onset" if Symptomatic); Complete Time: [facility] 02:33 03/08 01:11 Order name: CT Abd/Pelvis - IV Contrast Only [facility] 03/08 01:11 Order name: Chest Single View XRAY [facility] 03/08 02:28 Order name: Urine Dipstick-Ancillary; Complete Time: 02:33 [facility] 03/08 01:11 Order name: IV Saline Lock; Complete Time: 01:43 [facility] 03/08 01:11 Order name: Labs collected and sent; Complete Time: 01:43 [facility] 03/08 01:11 Order name: Urine Dipstick-Ancillary (obtain specimen); Complete Time: 02:28 [facility] 03/08 01:11 Order name: Urine Test (obtain specimen); Complete Time: 02:28 mitra Administered Medications: 01:54 Drug: NS 0.9% 1000 ml Route: IV; Rate: 1 bolus; Site: right antecubital; aa9 03:38 Follow up: Response: No adverse reaction; IV Status: Completed infusion; IV Intake: aa9 1000ml 01:54 Drug: Pepcid (famotidine) 20 mg Route: IVP; Site: right antecubital; aa9 03:38 Follow up: Response: No adverse reaction aa9 01:54 Drug: Zofran (Ondansetron) 4 mg Route: IVP; Site: right antecubital; aa9 03:38 Follow up: Response: No adverse reaction aa9 01:54 Drug: morphine 4 mg Route: IVP; Infused Over: 4 mins; Site: right antecubital; aa9 03:37 Follow up: Response: No adverse reaction aa9 03:04 Drug: Potassium Effervescent Tablet 25 mEq Route: PO; aa9 03:37 Follow up: Response: No adverse reaction aa9 Disposition Summary: 03/08/22 03:35 Discharge Ordered Location: Home mitra Problem: new mitra Symptoms: have improved mitra Condition: Stable mitra Diagnosis - Vomiting mitra - Abdominal pain, Generalized mitra - Hypokalemia mitra Followup: mitra - With: Private Physician - When: 2 - 3 days - Reason: Recheck today's complaints, Continuance of care, Re-evaluation by your physician Discharge Instructions: - Discharge Summary Sheet mitra - Abdominal Pain, Adult mitra - Potassium Content of Foods mitra - Abdominal Pain, Adult, [id number] mitra - Hypokalemia mitra - Vomiting, Adult mitra Forms: - Medication Reconciliation Form mitra - Thank You Letter mitra - Antibiotic Education mitra - Prescription Opioid Use mitra - Work release form aa9 Prescriptions: - Pepcid 20 mg Oral Tablet - take 1 tablet by ORAL route every 12 hours for 10 days; 20 tablet; Refills: 0, [facility] Product Selection Permitted - Zofran 4 mg Oral Tablet - take 1 tablet by ORAL route every 12 hours As needed; 20 tablet; Refills: 0, [facility] Product Selection Permitted - dicyclomine 20 mg Oral Tablet - take 1 tablet by ORAL route 4 times per day; 28 tablet; Refills: 0, Product [facility] Selection Permitted Signatures: Dispatcher [employer] Vince Garcia MD MD cha Wood, Tiffany tw5 Dianna Love, RN RN aa9
[2022-03-08 04:12] VITALS: TEMP 99.2
[2022-03-08 04:20] VITALS: BP 103/72; O2SAT 100
--- NOTE | 2022-03-08 12:44 | RAD REPORT ---
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 In addition multiplanar reformats in the coronal and sagittal plane were obtained and reviewed. This exam was performed according to our departmental dose-optimization protocol, which includes auto mated exposure control, adjustment of the mA and/or kV according to patient size and/or use of iterat colton reconstruction technique. FINDINGS: The lung bases demonstrate to be clear. The liver, gallbladder, pancreas, spleen and adrenal glands demonstrate to be unremarkable, no focal lesions are noted. The kidneys demonstrate normal uptake of contrast media. No evidence for nephrolithiasis and/or hydro nephrosis. Grossly the unopacified stomach, small bowel and large bowel demonstrate to be within normal limits. There is no evidence for bowel dilatation/or free air. The appendix was not visualized although n o significant inflammatory changes are seen within the right lower quadrant. The urinary bladder demonstrate to be unremarkable. The prostate gland is normal. The aorta demon strate to be normal. Incidentally is noted presence of a retroaortic left renal vein There is no retr operitoneal lymphadenopathy. There is no evidence for ascites/or significant abnormal fluid collectio ns. The rest of the soft tissue and bony structures are within normal limits. IMPRESSION: No acute intra-abdominal process. Unremarkable CT scan of the abdomen and pelvis with contrast. Electronically signed by: Rich Louise MD 03/08/2022 3:25 AM ELECTRICAL TROUBLESHOOTER Due to temporary technical issues with the PACS/Fluency reporting system, reports are being signed by the in house radiologists without review as a courtesy to insure prompt reporting. The interpreting radiologist is fully responsible for the content of the report.
--- NOTE | 2022-03-08 13:39 | RAD REPORT ---
EXAM DESCRIPTION: Chest Single View 03/08/2022 1:41 AM SOFTWARE APPLICATION TESTER CLINICAL HISTORY: 32 years, Female, ABDOMINAL DISTENTION COMPARISON: None. FINDINGS: Single view of the chest was obtained portable. No prior films are available for compariso n. The cardiomediastinal silhouette demonstrate to be unremarkable. The heart is not enlarged. The th oracic aorta is unremarkable. The pulmonary vasculature is normal distribution. Costophrenic angles a re sharp. No areas of consolidation or masses are seen. The rest of the soft tissue and bony stru ctures demonstrate to be unremarkable. IMPRESSION: No acute cardiopulmonary disease identified. Electronically signed by: Rich Louise MD 03/08/2022 1:41 AM SOFTWARE APPLICATION TESTER Due to temporary technical issues with the PACS/Fluency reporting system, reports are being signed by the in house radiologists without review as a courtesy to insure prompt reporting. The interpreting radiologist is fully responsible for the content of the report.
== END 2022-03-08 03:48 | disposition home or self-care (01) ==
LOC: ER 00:37
DX: E87.6 Hypokalemia (principal); R10.84 Generalized abdominal pain
CPT/HCPCS: 36415; 71045; 74177; 80053; 81003; 81015; 83690; 85025; 87804; 96361; 96374; 96375; 99284; J2405; J7030; Q9967; U0003